=== PATIENT | female | born 1995 | race Caucasian/White ===

== ENCOUNTER 2023-01-09 22:36 | Emergency (ER) | payer MEDICAID, SELFPAY ==
[2023-01-09 22:37] VITALS: BP 125/79; PULSE 122; RESP 16; TEMP 37.7; O2SAT 97; BMI 19.5
--- NOTE | 2023-01-09 23:33 | EDS_ITS ---
HPI History of Present Illness Chief Complaint: General Illness Narrative Narrative: Is a 27-year-old female who states that over the past 2 days she has had sore throat with nausea and low-grade fever. She reports that she used to get strep all the time. She states that with the symptoms she feels she has strep once again. She denies any difficulty swallowing or breathing but with concern for infection comes to the hospital for evaluation. PFSH PFSH Home Medications penicillin V potassium 500 mg tablet 500 mg PO BID 10 days #20 tabs 01/09/23 [Rx Last Taken Unknown] prednisone 20 mg tablet 40 mg PO DAILY 5 days #10 tabs 01/09/23 [Rx Last Taken Unknown] Allergy/AdvReac Type Severity Reaction Status Date / Time No Known Allergies Allergy Verified 01/09/23 22:43 Surgical History (Updated 01/09/23 @ 22:45 by Ediht Pugh) Previous back surgery Social History Smoking Status: Current every day smoker tobacco type: cigarettes ROS ROS ED Constitutional Constitutional ED: Reports chills and fever(s) ENT ENT ED: Reports sore throat; Denies rhinorrhea Cardiovascular Cardiovascular: Denies chest pain Respiratory/Chest Respiratory/Chest: Denies cough or dyspnea Gastrointestinal Gastrointestinal: Reports nausea; Denies abdominal pain, diarrhea or vomiting Genitourinary Genitourinary ED: Denies dysuria Musculoskeletal Musculoskeletal: Denies myalgias Integumentary Denies rash Neurologic Neurologic: Reports headache(s) Hematologic/Lymphatic Hematologic/Lymphatic: Denies easy bleeding or easy bruising EXAM Physical Exam Const Vital Signs: 01/09/23 22:37 01/09/23 22:44 Temperature 99.9 F H Temperature Source Oral Pulse Rate 122 H Respiratory Rate 16 Respiratory Effort Normal Respiratory Pattern Normal Blood Pressure 125/79 H Blood Pressure Mean 94 Pulse Ox 97 Oxygen Delivery Method Room Air Positive well nourished and well developed General Appearance ED: well developed HEENT Reports moist mucous membranes HEENT Narrative: Posterior pharynx displays diffuse erythema there is +2 tonsillar hypertrophy bilaterally. There is white exudative plaques present as well with hard palate petechiae. However there is no trismus or change in voice or difficulty with secretions. Eyes PERRL and EOMs intact bilaterally Neck supple Neck Narrative: Positive tender anterior cervical lymphadenopathy noted Resp normal respiratory effort and clear to auscultation bilaterally Cardio regular rhythm Rate: tachycardic GI normal to inspection, nondistended, normoactive bowel sounds, non-tender, non- distended and no masses Auscultation: normoactive bowel sounds Palpation: soft Extremity normal to inspection Neuro oriented x3 and CN's II-XII intact bilaterally Sensorium / Orientation: alert Psych mental status grossly normal Skin no rashes or lesions noted MDM MDM MDM Narrative Medical decision making narrative: Patient presented to the ER technically afebrile but did report a fever at home of 101. She has times hypertrophy exudates erythema and hard palate petechiae along with tender anterior lymph node as well as reported fever and absence of cough making her 4 out of 4 on the [employer] criteria. Therefore at this time as her exam does not suggest a retropharyngeal or peritonsillar abscess but more so strep throat and she is 4 out of 4 on the [employer] criteria there is no need for a rapid strep swab and patient will be placed on antibiotic. As she does not have signs of systemic infection or respiratory distress she is otherwise safe for discharge Discharge Plan Triage Chief Complaint: General Illness ED Provider: Pawel Hilario Dx/Rx/DC Orders Clinical Impression: Acute streptococcal pharyngitis Instructions: ED Pharyngitis, Strep (Presumed) Prescriptions: New penicillin V potassium 500 mg tablet 500 mg PO BID 10 Days Qty: 20 0RF prednisone 20 mg tablet 40 mg PO DAILY 5 Days Qty: 10 0RF Stand Alone Forms: ED Work / School Excuse Primary Care Provider: Care Physician,No Primary Activity Restrictions/Additional Instructions: Please continue with Tylenol and Motrin for fever and pain control and do salt water gargles. Take the medications as directed to control your symptoms and return to the ER should you have any further concerns Disposition Disposition: Home, Self Care Discharge Date/Time: 01/09/23 23:50
[2023-01-09] MEDS: Penicillin Vk 250 MG Tablet 500 MG PO (23:47)
[2023-01-09] MEDS: dexAMETHasone 10 MG/ML Vial PO.IVFORM (23:47)
== END 2023-01-09 23:50 | disposition home or self-care (01) ==
LOC: ED 23:38
PROVIDERS: Emergency Provider Emergency Medicine; Visit Provider Emergency Medicine
DX: J02.0 Streptococcal pharyngitis (principal); F17.210 Nicotine dependence, cigarettes, uncomplicated
CPT/HCPCS: 99284